=== PATIENT | female | born 1960 | race Caucasian/White ===

== ENCOUNTER 2018-07-19 11:14 | Outpatient (CLI) | payer OTHER ==
--- NOTE | 2018-07-20 09:17 | Mammography Report ---
Reason: SCREENING MAMMO Procedure Date: 07/19/2018 Accession Number: [id number] / [id number] Procedure: ANNY - Screening Mammo w/Chang CPT Code: FULL RESULT: EXAM: Screening Mammo w/Chang DATE: 07/19/2018 11:45 AM CLINICAL HISTORY: Screening exam. History of late childbearing and family history of breast cancer in a cousin at the age of 35 and a aunt at the age of 80. TECHNIQUE: Bilateral CC and MLO views were obtained. COMPARISON: 03/29/2017 through 11/26/2013. FINDINGS: The breasts demonstrate diffuse fatty replacement bilaterally. There are stable typically benign left breast intramammary lymph nodes. No suspicious masses, clustered microcalcifications, or regions of architectural distortion are identified. IMPRESSION: Benign findings RECOMMENDATION: Routine annual screening unless otherwise clinically indicated. BIRADS CATEGORY 2: Benign findings STANDARD QUALIFYING STATEMENTS: 1. This examination was not reviewed with the aid of Computer-Aided Detection (CAD). 2. A negative or benign imaging report should not preclude biopsy if clinically suspicious findings are present. 3. Dense breasts may obscure an underlying neoplasm. 4. This examination was reviewed with the aid of 3D breast imaging (tomosynthesis).
== END 2018-07-19 11:15 | disposition home or self-care (01) ==
LOC: DI 11:14
PROVIDERS: ATTEND Family Medicine
DX: Z12.31 Encounter for screening mammogram for malignant neoplasm of breast (principal); Z80.3 Family history of malignant neoplasm of breast
CPT/HCPCS: 77063; 77067

== ENCOUNTER 2019-08-24 15:00 | Outpatient (CLI) | payer BC ==
--- NOTE | 2019-08-27 14:31 | Mammography Report ---
Reason: ROUTINE MAMMO Procedure Date: 08/24/2019 Accession Number: [id number] / [id number] Procedure: ANNY - Screening Mammo w/Chang CPT Code: Final Report FULL RESULT: EXAM: Screening Mammo w/Chang DATE: 08/24/2019 3:51 PM CLINICAL HISTORY: Screening encounter. History of late childbearing. TECHNIQUE: (B) - Bilateral CC and MLO views were obtained. COMPARISON: 07/19/2018 through 10/04/2012. PARENCHYMAL PATTERN: (A) - The breast(s) demonstrate(s) scattered fibroglandular densities. FINDINGS: There are no suspicious masses, calcifications, or areas of distortion. IMPRESSION: Negative examination. BI-RADS category 1. RECOMMENDATION: (ANNUAL) - Recommend routine annual screening mammography. BI-RADS CATEGORY: (1) - Negative. STANDARD QUALIFYING STATEMENTS: 1. This examination was not reviewed with the aid of Computer-Aided Detection (CAD). 2. A negative or benign imaging report should not preclude biopsy if clinically suspicious findings are present. 3. Dense breasts may obscure an underlying neoplasm. 4. This examination was reviewed with the aid of 3D breast imaging (tomosynthesis).
== END 2019-08-24 15:01 | disposition home or self-care (01) ==
LOC: DI 15:00
DX: Z12.31 Encounter for screening mammogram for malignant neoplasm of breast (principal)
CPT/HCPCS: 77063; 77067

== ENCOUNTER 2020-09-13 14:30 | Outpatient (CLI) | payer BC ==
--- NOTE | 2020-09-13 16:46 | Ultrasound Report ---
PROCEDURE: Pelvic w/Transvaginal INDICATIONS: IRREGULAR MENSES, HX OF GASTRIC BYPASS TECHNIQUE: Real-time scanning was performed of the pelvic organs, with image documentation. Additional endovagi nal scanning was necessary due to incomplete visualization of the adnexal and endometrial structures by transabdominal scanning. COMPARISON: None. FINDINGS: No pathologic free abdominal or pelvic fluid. Uterus: Uterus is normal in size at 8.1 x 4.7 x 5.8 cm. There is a submucosal mid uterus fibroid see n posteriorly that measures 1.9 x 1.9 x 1.5 cm. The endometrium measures 11 mm in combined thickness. The endometrial stripe demonstrates an irregular appearance, with a potential polyp, with a feeding v essel. A cyst is seen along the endometrial stripe that measures up to 5 mm. Nabothian cysts are inci dentally noted. Ovaries: The right ovary measures 1.7 x 1.1 x 1.6 cm and the left ovary measures 0.7 x 1.9 x 1.3 cm. No significant ovarian abnormalities are seen. There are less than 12 follicles seen on each side. No adnexal masses are seen. IMPRESSION: The endometrial stripe is abnormally thickened in this patient with a presenting history of postmenop ausal bleeding. The individual stripe is irregular and there is an apparent endometrial polyp polyp s een. Differential diagnosis includes endometrial hyperplasia and endometrial carcinoma. Please consider correlation with endometrial histology, as clinically appropriate. L1 0.9 cm submucosal fibroid is also seen. Reviewed by: Luis Junior MD on 09/13/2020 3:45 PM [facility] Approved by: Luis Junior MD on 09/13/2020 3:45 PM [facility] Station ID: [id number]
== END 2020-09-13 14:31 | disposition home or self-care (01) ==
LOC: DI 14:30
PROVIDERS: ATTEND Obstetrics & Gynecology
DX: N92.6 Irregular menstruation, unspecified (principal); N84.0 Polyp of corpus uteri; D25.0 Submucous leiomyoma of uterus; Z98.84 Bariatric surgery status

== ENCOUNTER 2020-09-29 14:48 | Outpatient (CLI) | payer BC ==
--- NOTE | 2020-09-30 12:47 | Mammography Report ---
BILATERAL DIGITAL SCREENING MAMMOGRAM 3D/2D: 09/29/2020 CLINICAL: Routine screening. Comparison is made to exams dated: 08/24/2019 mammogram, 07/19/2018 mammogram - [facility], 03/29/2017 mammogram, 01/06/2016 mammogram, 11/26/2013 mammogram, and 12/24/2014 mammogram - [facility]. The tissue of both breasts is predominantly fatty. No significant masses, calcifications, or other findings are seen in either breast. There has been no significant interval change. IMPRESSION: NEGATIVE There is no mammographic evidence of malignancy. A 1 year screening mammogram is recommended. This exam was interpreted at Station ID: [id number]. NOTE: For mammograms, a report in lay terms will be sent to the patient. Approximately 15% of breast malignancies will not be visualized mammographically. In the management of a palpable breast mass, a negative mammogram must not discourage biopsy of a clinically suspicious lesion. Electronically Signed By: Klever Ndiaye M.D., jr/yovany:09/29/2020 15:24:04 ACR BI-RADS Category 1: Negative 3341F PARENCHYMAL PATTERN: (F) - The breast(s) demonstrate(s) diffuse fatty replacement. BI-RADS CATEGORY: (1) - 1 RECOMMENDATION: (ANNUAL) - Recommend routine annual screening mammography. [id number] 1 year screening LATERALITY: (B)
== END 2020-09-29 14:49 | disposition home or self-care (01) ==
LOC: DI.S 14:48
PROVIDERS: ATTEND Obstetrics & Gynecology
DX: Z12.31 Encounter for screening mammogram for malignant neoplasm of breast (principal)

== ENCOUNTER 2020-10-23 07:00 | Outpatient (CLI) | payer BC ==
[2020-10-24 20:48] LABS: BACTERIAL VAGINOSIS DNA NEGATIVE (NEGATIVE); CANDIDA GLABRATA DNA NEGATIVE (NEGATIVE); CANDIDA GROUP DNA NEGATIVE (NEGATIVE); CANDIDA KRUSEI DNA NEGATIVE (NEGATIVE); TRICHOMONAS VAGINALIS DNA NEGATIVE (NEGATIVE)
== END 2020-10-23 23:59 | disposition home or self-care (01) ==
LOC: LAB.R 07:00
PROVIDERS: ATTEND Obstetrics & Gynecology
DX: N89.8 Other specified noninflammatory disorders of vagina (principal)
CPT/HCPCS: 87661; 87801

== ENCOUNTER 2020-12-05 07:36 | Outpatient (CLI) | payer BC ==
[2020-12-05 08:02] LABS: CALCIUM, IONIZED 1.15 mmol/L (1.15-1.33); VBG PH 7.354 (7.31-7.41)
[2020-12-05 08:03] LABS: HCT - HEMATOCRIT 44.9 % (37.0-47.0); HGB - HEMOGLOBIN 14.8 g/dL (12.0-16.0); MEAN CORPUSCULAR HEMOGLOBIN 35.1 pg (27.0-31.0); MEAN CORPUSCULAR VOLUME 106.4 fL (81.0-99.0); MEAN PLATELET VOLUME 8.9 fL (7.9-10.8); RED BLOOD COUNT 4.22 10^6/uL (4.20-5.40); WHITE BLOOD COUNT 3.2 x10^3/uL (4.8-10.8)
[2020-12-05 08:09] LABS: GTT GLUCOSE,FASTING 107 mg/dL (70-100)
[2020-12-05 08:19] LABS: % IRON SATURATION 22 % (20-50); ALBUMIN/GLOBULIN RATIO 1.3 (1.0-2.2); ALKALINE PHOSPHATASE 66 IU/L (42-121); ALT ALANINE AMINOTRANSFERASE 15 IU/L (10-60); AST ASPARTATE AMINOTRANSFERASE 20 IU/L (10-42); BILIRUBIN,TOTAL 0.8 mg/dL (0.2-1.0); BUN - BLOOD UREA NITROGEN 19 mg/dL (6-20); CALCIUM 9.1 mg/dL (8.5-10.3); CARBON DIOXIDE - CO2 27 mmol/L (21-32); CHLORIDE 103 mmol/L (101-111); CREATININE 0.8 mg/dL (0.4-1.0); GFR - MDRD 73 (>89); GLUCOSE 106 mg/dL (70-100); IRON 93 ug/dL (28-170); POTASSIUM 3.9 mmol/L (3.5-5.0); SODIUM 140 mmol/L (135-145); TOTAL IRON BINDING CAPACITY 414 ug/dL (250-450); TOTAL PROTEIN 7.2 g/dL (6.7-8.2); TRANSFERRIN 296 mg/dL (192-382); TRIGLYCERIDES 73 mg/dL
[2020-12-05 08:20] LABS: CHOL/HDL RATIO 2.3 (<4.4); CHOLESTEROL 245 mg/dL; HDL CHOLESTEROL 106 mg/dL; LDL CHOLESTEROL,CALCULATED 124 mg/dL; LDL/HDL RATIO 1.2 (<4.4); VLDL CHOLESTEROL 15 mg/dL
[2020-12-05 08:31] LABS: THYROID STIMULATING HORMONE 6.03 uIU/mL (0.34-5.60)
[2020-12-05 08:37] LABS: FERRITIN 60.4 ng/mL (11.0-306.8)
[2020-12-05 11:20] LABS: FREE T4 (FREE THYROXINE) 0.96 ng/dL (0.58-1.64)
== END 2020-12-05 07:37 | disposition home or self-care (01) ==
LOC: LAB 07:36
PROVIDERS: ATTEND Obstetrics & Gynecology
DX: Z00.00 Encounter for general adult medical examination without abnormal findings (principal); Z98.84 Bariatric surgery status; Z13.220 Encounter for screening for lipoid disorders; D64.9 Anemia, unspecified; Z13.1 Encounter for screening for diabetes mellitus; E06.3 Autoimmune thyroiditis
CPT/HCPCS: 36415; 80053; 80061; 82306; 82330; 82728; 82951; 83540; 83721; 84439; 84443; 84466; 85027

== ENCOUNTER 2020-12-13 11:13 | Outpatient (CLI) | payer BC ==
--- NOTE | 2020-12-13 13:03 | Ultrasound Report ---
PROCEDURE: Pelvic w/Transvaginal INDICATIONS: THICKENED ENDOMETRIUM, UTERINE POLYP TECHNIQUE: Real-time scanning was performed of the pelvic organs, with image documentation. Additional endovagi nal scanning was necessary due to incomplete visualization of the adnexal and endometrial structures by transabdominal scanning. COMPARISON: None. FINDINGS: No pathologic free abdominal or pelvic fluid. Uterus: Uterus is normal in size at 8.1 x 5.3 x 6.0 cm. The previously noted submucosal fibroid is not well evaluated on this examination. The questionable polyp within the lower uterine segment noted on comparison exam is not well evaluated on today's exam. Prominent vessel is however again identifi ed. The endometrium measures 5 mm in combined thickness. Stable endometrial cyst measuring 2 mm in d iameter. Ovaries: The right ovary measures 0.9 x 1.2 x 0.8 cm. In the left ovary measures 1.2 x 1.2 x 1.0 cm. No suspicious cystic or solid mass. IMPRESSION: Endometrial thickness measures approximately 5 mm on today's examination with unchanged 2 mm endometr ial cyst. This is decreased in prominence from recent comparison. This is still slightly enlarged in a postmenopausal patient with bleeding. Consider correlation with endometrial histology as clinically appropriate. The previously noted submucosal fibroid and polyp are not well identified on today's examination. The re is however continued visualization of a dominant vessel which may represent a feeding vessel for a polyp. Consider direct evaluation versus sonohysterogram. Reviewed by: Endy Cardona DO on 12/13/2020 12:02 PM [facility] Approved by: Endy Cardona DO on 12/13/2020 12:02 PM [facility] Station ID: [id number]
== END 2020-12-13 11:14 | disposition home or self-care (01) ==
LOC: DI 11:13
PROVIDERS: ATTEND Obstetrics & Gynecology
DX: N85.00 Endometrial hyperplasia, unspecified (principal); N85.8 Other specified noninflammatory disorders of uterus; R93.89 Abnormal findings on diagnostic imaging of other specified body structures

== ENCOUNTER 2021-02-04 15:49 | Outpatient (CLI) | payer BC ==
[2021-02-04 20:35] LABS: T4 (THYROXINE) 8.05 ug/dL (6.09-12.23)
[2021-02-04 20:37] LABS: THYROID STIMULATING HORMONE 3.25 uIU/mL (0.34-5.60)
[2021-02-04 20:48] LABS: FOLATE 4.72 ng/mL (5.90 - >24.8)
== END 2021-02-04 15:50 | disposition home or self-care (01) ==
LOC: LAB.S 15:49
PROVIDERS: ATTEND Obstetrics & Gynecology
DX: E55.9 Vitamin D deficiency, unspecified (principal); D75.89 Other specified diseases of blood and blood-forming organs; E06.3 Autoimmune thyroiditis
CPT/HCPCS: 36415; 82306; 82607; 82746; 82747; 84436; 84443; 84480

== ENCOUNTER 2021-07-06 10:46 | Outpatient (CLI) | payer BC ==
--- NOTE | 2021-07-07 14:08 | Ultrasound Report ---
LIMITED ULTRASOUND OF LEFT BREAST: 07/06/2021 CLINICAL: Palpable left breast lump. Comparison is made to exams dated: 07/06/2021 mammogram, 09/29/2020 mammogram, 08/24/2019 mammogram, 1 09/19/2017 mammogram - [facility], 03/29/2017 mammogram, and 01/06/2016 mammogram - [facility]. Color flow ultrasound of the left breast 11-12 o'clock region was performed. Enamorado scale images of t he real-time examination were reviewed. There is a 0.4 cm x 0.3 cm x 0.4 cm oval mass with a circumscribed margin in the left breast at 11 o' clock middle depth 5 cm from the nipple. This oval mass is hypoechoic with an abrupt boundary and no posterior acoustic shadowing or enhancement. Color flow imaging demonstrates that there is no vascu larity present. IMPRESSION: PROBABLY BENIGN The 0.4 cm x 0.3 cm x 0.4 cm oval mass in the left breast most likely is complicated cysts and is pro bably benign. Follow-up mammogram and ultrasound in 6 months is recommended. This exam was interpreted at Station ID: [id number]. Electronically Signed By: Klever Ndiaye M.D. jr/:07/06/2021 11:54:07 Ultrasound BI-RADS: 3 Probably benign BI-RADS CATEGORY: (3) - 3 Mammo and US [id number] 6 month follow-up LATERALITY: (B)
--- NOTE | 2021-07-07 14:08 | Mammography Report ---
BILATERAL DIGITAL DIAGNOSTIC MAMMOGRAM 3D/2D: 07/06/2021 CLINICAL: Palpable left breast lump. Comparison is made to exams dated: 09/29/2020 mammogram, 08/24/2019 mammogram, 07/19/2018 mammogram - [facility], 03/29/2017 mammogram, 01/06/2016 mammogram, and 12/24/2014 mammogram - [facility]. The tissue of both breasts is predominantly fatty. No significant masses, calcifications, or other findings are seen in either breast. No mass or other abnormality at the anterior left breast region of reportedly palpable concern. IMPRESSION: INCOMPLETE: NEEDS ADDITIONAL IMAGING EVALUATION No suspicious mammographic finding. An ultrasound will be performed. This exam was interpreted at Station ID: [id number]. NOTE: For mammograms, a report in lay terms will be sent to the patient. Approximately 15% of breast malignancies will not be visualized mammographically. In the management of a palpable breast mass, a negative mammogram must not discourage biopsy of a clinically suspicious lesion. Electronically Signed By: Klever Ndiaye M.D. jr/:07/06/2021 11:34:20 ACR BI-RADS Category 0: Incomplete 3340F PARENCHYMAL PATTERN: (F) - The breast(s) demonstrate(s) diffuse fatty replacement. BI-RADS CATEGORY: (0) - 0 Ultrasound [id number] Immediate follow-up LATERALITY: (B)
== END 2021-07-06 10:47 | disposition home or self-care (01) ==
LOC: DI 10:46
PROVIDERS: ATTEND Obstetrics & Gynecology
DX: N63.22 Unspecified lump in the left breast, upper inner quadrant (principal)

== ENCOUNTER 2022-05-03 08:43 | Outpatient (CLI) | payer BC ==
[2022-05-03 08:55] LABS: BASOPHILS % (AUTO) 0.5 %; EOSINOPHILS # (AUTO) 0.1 10^3/uL (0.0-0.7); EOSINOPHILS % (AUTO) 3.3 %; HCT - HEMATOCRIT 42.2 % (37.0-47.0); LYMPHOCYTES % (AUTO) 22.6 %; MEAN CORPUSCULAR HEMOGLOBIN 34.6 pg (27.0-31.0); MEAN CORPUSCULAR HGB CONC 33.2 g/dL (32.0-36.0); MEAN CORPUSCULAR VOLUME 104.2 fL (81.0-99.0); MEAN PLATELET VOLUME 8.8 fL (7.9-10.8); MONOCYTES # (AUTO) 0.4 10^3/uL (0.0-1.0); MONOCYTES % (AUTO) 8.7 %; NEUTROPHILS # (AUTO) 2.7 10^3/uL (1.5-6.6); NEUTROPHILS % (AUTO) 64.7 %; PLT - PLATELET COUNT 237 10^3/uL (130-450); RED BLOOD COUNT 4.05 10^6/uL (4.20-5.40); RED CELL DISTRIBUTION WIDTH 12.5 % (12.0-15.0); WHITE BLOOD COUNT 4.2 x10^3/uL (4.8-10.8)
[2022-05-03 09:18] LABS: % IRON SATURATION 29 % (20-50); ALBUMIN 3.9 g/dL (3.2-5.5); ALBUMIN/GLOBULIN RATIO 1.2 (1.0-2.2); ALKALINE PHOSPHATASE 69 IU/L (42-121); ALT ALANINE AMINOTRANSFERASE 15 IU/L (10-60); AST ASPARTATE AMINOTRANSFERASE 22 IU/L (10-42); BILIRUBIN,TOTAL 0.7 mg/dL (0.2-1.0); BUN - BLOOD UREA NITROGEN 17 mg/dL (6-20); CALCIUM 9.3 mg/dL (8.5-10.3); CARBON DIOXIDE - CO2 29 mmol/L (21-32); CHLORIDE 105 mmol/L (101-111); CHOL/HDL RATIO 2.5 (<4.4); CHOLESTEROL 226 mg/dL; CREATININE 0.9 mg/dL (0.4-1.0); GFR - MDRD 63 (>89); GLUCOSE 106 mg/dL (70-100); HDL CHOLESTEROL 92 mg/dL; IRON 114 ug/dL (28-170); LDL CHOLESTEROL,CALCULATED 118 mg/dL; LDL/HDL RATIO 1.3 (<4.4); POTASSIUM 4.1 mmol/L (3.5-5.0); SODIUM 141 mmol/L (135-145); TOTAL IRON BINDING CAPACITY 396 ug/dL (250-450); TOTAL PROTEIN 7.2 g/dL (6.7-8.2); TRANSFERRIN 283 mg/dL (192-382); TRIGLYCERIDES 80 mg/dL; VLDL CHOLESTEROL 16 mg/dL
[2022-05-03 09:30] LABS: THYROID STIMULATING HORMONE 4.97 uIU/mL (0.34-5.60)
[2022-05-03 09:38] LABS: FERRITIN 66.9 ng/mL (11.0-306.8)
[2022-05-03 09:41] LABS: FOLATE 11.87 ng/mL (5.90 - >24.8)
[2022-05-03 12:53] LABS: ESTIMATED AVERAGE GLUCOSE 94 mg/dL (70-100); HEMOGLOBIN A1c% 4.9 % (4.27-6.07)
== END 2022-05-03 08:44 | disposition home or self-care (01) ==
LOC: LAB 08:43
PROVIDERS: ATTEND Internal Medicine
DX: E06.3 Autoimmune thyroiditis (principal); K90.9 Intestinal malabsorption, unspecified; E66.9 Obesity, unspecified; R73.01 Impaired fasting glucose
CPT/HCPCS: 36415; 80053; 80061; 82306; 82607; 82728; 82746; 83036; 83540; 83721; 84443; 84466; 85025

== ENCOUNTER 2023-10-06 14:10 | Outpatient (CLI) | payer MEDICARE, OTHER ==
--- NOTE | 2023-10-06 15:48 | DEXA Report ---
PROCEDURE: Dexa Spine and/or Hip INDICATIONS: POST MENOPAUSAL TECHNIQUE: Dual energy x-ray absorptiometry (DXA) was performed on a Class Messenger System. Regions measur ed are the AP Spine, femoral neck, and if needed forearm. COMPARISON: None FINDINGS: Lumbar Spine: Bone Mineral Density: 1.066 g/cm/cm,T score: -1.0. Left Femoral Neck: Bone Mineral Density: 0.793 g/cm/cm, T score: -1.8. Left Hip: Bone Mineral Density: 0.841 g/cm/cm,T score: -1.3. (T score greater or equal to -1.0: NORMAL) (T score from -1.1 to -2.4: OSTEOPENIA) (T score less than or equal to -2.5 to: OSTEOPOROSIS) Impression: By WHO criteria, this patient has low bone density (osteopenia). Patients with diagnosis of osteoporosis or osteopenia should have regular bone mineral density assess ment. For those eligible for Medicare, routine testing is allowed once every 2 years. Testing frequ ency can be increased for patients who have rapidly progressing disease or for those who are receivin g medical therapy to restore bone mass. Reviewed by: Isabelle Thrasher MD on 10/06/2023 3:47 PM PST Approved by: Isabelle Thrasher MD on 10/06/2023 3:47 PM PST Station ID: [id number]
== END 2023-10-06 14:11 | disposition home or self-care (01) ==
LOC: DI 14:10
PROVIDERS: ATTEND Internal Medicine
DX: Z78.0 Asymptomatic menopausal state (principal); M85.89 Other specified disorders of bone density and structure, multiple sites

== ENCOUNTER 2023-12-19 14:45 | Outpatient (CLI) | payer MEDICARE, OTHER ==
[2023-12-19 22:08] VITALS: BP 142/93; O2SAT 99
--- NOTE | 2023-12-19 22:08 | SLEEP CARE CONSULTATION ---
Information from patient questionnaire entered by Valentino Best. I have reviewed and concur with the information entered by Valetnino Best. This document represents the service I personally performed and the decisions made by me, Joie Bonilla MD, [facility]. History of Present Illness Service Date and Time: 12/19/2023 1445 Reason for Visit: New patient Chief Complaint: reports: Insomnia, Unrefreshed sleep, Observed pauses in breathing, Fatigue, Frequent awakenings at night Date of Onset: ABOUT 5 YRS Usual bedtime: 2200 Time it takes to fall asleep: 10-15MIN Snores at night: Yes Observed to quit breathing while asleep: No Sleeps alone due to snoring: Yes Number of times waking at night: 1-4 Reasons for waking at night: reports: Gasping for air, Bathroom, Other (UNKNOWN NOISE) Toss, Turn, or Twitch while sleeping: Yes Recalls having dreams: Yes Usually gets out of bed at: 0900 Feels refreshed in the morning: No Morning headache: No Sleepy or fatigued during the day: Yes Ever fallen asleep while driving: No Takes day naps: No Dreams during day naps: Yes Prior sleep studies: No Additional HPI information: I have the pleasure of seeing Ms. Hyde today regarding the possibility of her having obstructive sleep apnea. As you know, she is a 63-year-old lady who complains of insomnia and loud snore. The patient tells me that she normally goes to bed around 10 pm, and it takes her approximately 10 - 15 minutes to fall asleep. She has been told that she snores loudly and irregularly at night. She has never been observed to stop breathing in her sleep. Her has to sleep in a separate room but it is because of his snores. She can recall waking up on the average of 1 - 4 times during the night. Most of the time she wakes up because of having to use the bathroom and noises. She has awakened occasionally because of her own snoring, choking, and having to gasp for air. There is not a lot of tossing and turning in her sleep. She has somniloquy (sleep talking) but not somnambulism (sleep walking). Generally, she can recall having dreams. In the morning she usually gets up out of the bed around 9 a.m. not feeling refreshed nor rested. She usually does not have a morning headache. During the day she complains of feeling fatigued. Her score on [place] Sleepiness Scale is 4 out of 24. She never has fallen asleep while driving nor has had any accident due to sleepiness. She usually does not take naps during the day. She denies having impaired concentration during the day. 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 Patient is and lives in [place]. Have you smoked in the past 12 months: No Cigarettes per day (20/pack): 10 Years of smokin Quit date: 1983 Smoking Pack Years: 5.0 Alcohol use: Yes Alcohol amount and frequency: 2-3 DRINKS SOMETIMES DAILY SOMETIMES NOT FOR MONTHS Caffeine use: No Family History Family history of sleep disordered breathing: Yes Family Hx Sleep Apnea: Sibling: Snoring, Grandparent: Snoring Allergies and Home Medications Known drug allergies: Yes ( LISTED) Drug allergies reviewed: Yes Home medication list reviewed: Yes Allergy and home medication list: Allergies erythromycin base Allergy (Verified 12/15/23 12:56) Review of Systems Weight gain over past 5 years: 15 Weight loss over past 5 years: 15 Cardiovascular: reports: palpitations, irregular heart rate or pulse Respiratory: denies: shortness of breath, wheeze, sputum production, chronic cough, other Gastrointestinal: denies: heartburn, difficulty swallowing, nausea, vomitting, diarrhea, abdominal pain, other Urinary: denies: incontinence, frequency, urgency, impotence, other Neurological: denies: headaches, seizure, head trauma, disorientation, speech dysfunction, gait or balance problems, fainting or unconsciousness, other Psychiatric: denies: Attention Deficit Hyperactivity, anxiety, depression, mood disorder, claustrophobia, other Ear/Nose/Throat: denies: nasal congestion, sinus problems, nose bleeds, dry mo uth/throat, hoarseness, injury to nose, tonsillectomy, wisdom teeth removed, other Endocrine: reports: thyroid disease Musculoskeletal: reports: joint pain Immunologic: denies: sneezing, rash, itching, allergies to food or environment, other Physical Exam Vital signs obtained and entered by: VALENTINO Yadav MA Blood Pressure: 142/93 (LEFT ARM) Cuff size: long Heart Rate: 57 O2 Saturation: 99 Height: 5 ft 7.5 in Weight: 310 lb Body Mass Index: 47.8 BMI Classification: Morbidly Obese Neck circumference: 14.5 Mood/affect: normal HEENT: No craniofacial malformation Nostrils: patent to airflow Turbinates: normal Septum: midline Mouth and throat: narrow oropharynx Soft palate: long Hard palate: normal Uvula: normal Uvula visualization: 50% Mallampati Class II Tongue: normal in size Tonsils: small Chin and jaw: normal size and position Neck: normal w/o lymphadenopathy or thyromegaly Heart: regular rate and rhythm Lungs: clear bilaterally Extremities: no edema or clubbing Neurologic: intact Impression and Plan IMPRESSION: 1. Obstructive Sleep Apnea-Hypopnea Syndrome, as evident by history of loud and irregular snoring, frequent awakenings during the night, unrefreshed sleep, and persistent fatigue. Narrow oropharynx and obesity are common predisposing factors for obstructive sleep apnea-hypopnea syndrome. I recommend proceeding to polysomnography to confirm the diagnosis and to assess severity. If she has significant sleep disordered breathing, a manual CPAP titration study will also be performed to find the optimal treatment pressure. I informed the patient of what the sleep studies involve and after some discussion, she agreed to proceed. 2. Insomnia due to excessive time spent in bed of about 11 hours a night. The patient was advised to spend no more than 8 hours in bed. Plan: 1. Schedule an in-laboratory polysomnography. 2. Avoid alcohol, sedatives, and muscle relaxants around bedtime. 3. Maintain a regular wake up time and spend no more than 8 hours in bed at night. Avoid naps. 4. Return for follow up after the sleep study. Counseling Topics: Weight control Follow up with Sleep Care in: 1-2 months Visit Type: In Office Time Spent with Patient (minutes): 15 Provider Statement: I spent 100% of the Face to Face Visit with the patient with greater than 50% spent counseling the patient and coordination of care.
== END 2023-12-19 14:46 | disposition home or self-care (01) ==
LOC: SC 14:45
PROVIDERS: ATTEND Internal Medicine Pulmonary Disease
DX: G47.8 Other sleep disorders (principal); R06.83 Snoring; R53.83 Other fatigue; G47.00 Insomnia, unspecified; E66.01 Morbid (severe) obesity due to excess calories; Z68.42 Body mass index [BMI] 45.0-49.9, adult; Z87.891 Personal history of nicotine dependence
CPT/HCPCS: 99202; G0463; 99212

== ENCOUNTER 2024-01-09 20:20 | Outpatient (CLI) | payer MEDICARE, OTHER | END 2024-01-09 20:21 | disposition home or self-care (01) | LOC: SC 20:20 | PROVIDERS: ATTEND Internal Medicine Pulmonary Disease | DX: G47.00 Insomnia, unspecified (principal); R53.83 Other fatigue; G47.50 Parasomnia, unspecified; G47.8 Other sleep disorders; E66.9 Obesity, unspecified; Z68.42 Body mass index [BMI] 45.0-49.9, adult; G47.9 Sleep disorder, unspecified; I49.1 Atrial premature depolarization | CPT/HCPCS: 95810 ==

== ENCOUNTER 2024-02-01 14:22 | Outpatient (CLI) | payer MEDICARE, OTHER ==
--- NOTE | 2024-02-01 15:18 | SLEEP CARE CONSULTATION ---
Information from patient questionnaire entered by Ivanna Best. I have reviewed and concur with the information entered by Ivanna Best. This document represents the service I personally performed and the decisions made by , Ruby Ogden ARNP. History of Present Illness Service Date and Time: 02/01/20241421 Initial [place] Sleepiness Scale score: 4 Current [place] Sleepiness Scale score: 4 (02/01/24) Additional HPI information: PHILLIP RODRIGUEZ returns for follow up and results of the recently performed polysomnography. The patient was informed of the following findings: No significant sleep disordered breathing with an average AHI of 2.7 and tee oxygen saturation of 85%. She had frequent premature atrial contractions and somniloquy. I explained the pathophysiology behind obstructive sleep apnea. Patient does not have sleep apnea and was advised how weight gain could increase the risk of developing sleep apnea in the future. I strongly encouraged the patient to lose weight. Patient counseled not drink alcohol less than 4 hours before bedtime as it can increase snoring and apnea. Patient was cautioned about risks of drowsy driving until sleepiness symptoms resolve. Patient denies drowsy driving. Sleep Study - Results Type of Sleep Study: Polysomnography (COMPLETED 01/09/24) Polysomnography/Home Sleep Study results: IMPRESSION: The quality of the study is good. The patient had reduced sleep efficiency due to sleep onset insomnia. The sleep architecture was abnormal for sleep fragmentation and reduced amount of time spent in REM sleep. Respiratory monitoring showed no significant sleep disordered breathing (AHI = 2.7) associated with frequent arousals, oxyhemoglobin desaturation and mild hypoxia (tee oxygen saturation of 85% and only 2% to the total sleep time was spent with oxygen saturation below 90%). The respiratory events occurred mainly during __ (supine AHI = 0.0; non-supine = 4.55). Snore was light in intensity. There was no significant periodic leg movement of sleep. Cardiac rhythm was sinus rhythm with frequent premature atrial contractions, occasionally in trigeminy. There was somniloquy (sleep) during REM sleep Allergies and Home Medications Known drug allergies: Yes (as listed) Drug allergies reviewed: Yes Home medication list reviewed: Yes (no changes) Allergy and home medication list: Allergies erythromycin base Allergy (Verified 01/30/24 11:32) Review of Systems Review of systems same as previous: Yes (NO CHANGE) Physical Exam Vital signs obtained and entered by: IVANNA Yadav MA Blood Pressure: 138/78 (LEFT ARM) Cuff size: long Heart Rate: 66 O2 Saturation: 98 Height: 5 ft 9 in Weight: 310 lb Body Mass Index: 45.8 BMI Classification: Morbidly Obese Impression and Plan 1. Somniloquy. Patient was noted to talk during night of the study. There is no treatment necessary for this parasomnia. 2. Premature atrial contractions, frequent. She was advised that she should follow up with primary provider for further workup and treatment as appropriate. She voiced understanding. 3. Obesity, unspecified. Currently patients BMI is 45.8. Obesity increases the risk of apnea, CPAP pressure requirements and overall health risks especially cardiovascular and diabetes. Thus patient is advised to lose weight. * Follow up with primary provider for PACs * Attempt to lose weight * Avoid alcohol consumption near bedtime * Return as needed for follow up. Counseling Topics: Weight loss health impact Follow up with Sleep Care in: as needed Follow up with: PCP (for PACs) Visit Type: In Office Time Spent with Patient (minutes): 11 Provider Statement: I spent 100% of the Face to Face Visit with the patient with greater than 50% spent counseling the patient and coordination of care.
[2024-02-01 15:26] VITALS: BP 138/78; O2SAT 98
== END 2024-02-01 14:23 | disposition home or self-care (01) ==
LOC: SC 14:22
PROVIDERS: ATTEND Nurse Practitioner Family
DX: G47.50 Parasomnia, unspecified (principal); I49.1 Atrial premature depolarization; E66.01 Morbid (severe) obesity due to excess calories; Z68.42 Body mass index [BMI] 45.0-49.9, adult
CPT/HCPCS: 99212; G0463

== ENCOUNTER 2024-02-09 17:11 | Outpatient (CLI) | payer MEDICARE, OTHER ==
--- NOTE | 2024-02-10 11:39 | XRAY Report ---
PROCEDURE: Foot 3+V LT INDICATIONS: L FOOT PAIN TECHNIQUE: 3 views of the foot were acquired. COMPARISON: None. FINDINGS: Bones: No fractures or dislocations. No suspicious bony lesions. Mild degenerative changes. Small p lantar calcaneal spur. Soft tissues: No tibiotalar joint effusion. Achilles tendon appears normal. IMPRESSION: Mild degenerative changes. Small plantar calcaneal spur. Reviewed by: Tello Rodriguez MD on 02/10/2024 11:38 AM PDT Approved by: Tello Rodriguez MD on 02/10/2024 11:38 AM PDT Station ID: [id number]
== END 2024-02-09 17:12 | disposition home or self-care (01) ==
LOC: DI 17:11
PROVIDERS: ATTEND Internal Medicine
DX: M19.072 Primary osteoarthritis, left ankle and foot (principal); M77.32 Calcaneal spur, left foot

== ENCOUNTER 2024-04-25 09:12 | Outpatient (CLI) | payer MEDICARE, OTHER ==
[2024-04-25 09:25] LABS: BASOPHILS % (AUTO) 0.9 %; EOSINOPHILS # (AUTO) 0.1 10^3/uL (0.0-0.7); EOSINOPHILS % (AUTO) 3.7 %; HCT - HEMATOCRIT 42.1 % (37.0-47.0); HGB - HEMOGLOBIN 13.7 g/dL (12.0-16.0); LYMPHOCYTES % (AUTO) 31.5 %; MEAN CORPUSCULAR HEMOGLOBIN 33.7 pg (27.0-31.0); MEAN CORPUSCULAR HGB CONC 32.5 g/dL (32.0-36.0); MEAN CORPUSCULAR VOLUME 103.4 fL (81.0-99.0); MONOCYTES # (AUTO) 0.3 10^3/uL (0.0-1.0); MONOCYTES % (AUTO) 7.7 %; NEUTROPHILS # (AUTO) 1.8 10^3/uL (1.5-6.6); NEUTROPHILS % (AUTO) 55.9 %; PLT - PLATELET COUNT 217 10^3/uL (130-450); RED BLOOD COUNT 4.07 10^6/uL (4.20-5.40); RED CELL DISTRIBUTION WIDTH 13.1 % (12.0-15.0); WHITE BLOOD COUNT 3.2 x10^3/uL (4.8-10.8)
[2024-04-25 09:40] LABS: ALBUMIN/GLOBULIN RATIO 1.6 (1.0-2.2); ALKALINE PHOSPHATASE 67 IU/L (42-121); ALT ALANINE AMINOTRANSFERASE 17 IU/L (10-60); AST ASPARTATE AMINOTRANSFERASE 23 IU/L (10-42); BILIRUBIN,TOTAL 0.8 mg/dL (0.2-1.0); BUN - BLOOD UREA NITROGEN 16 mg/dL (6-20); CALCIUM 9.4 mg/dL (8.5-10.3); CARBON DIOXIDE - CO2 30 mmol/L (21-32); CHLORIDE 105 mmol/L (101-111); CHOL/HDL RATIO 2.3 (<4.4); CHOLESTEROL 223 mg/dL; CREATININE 0.8 mg/dL (0.6-1.3); GFR - MDRD 72 (>89); GLUCOSE 106 mg/dL (74-104); HDL CHOLESTEROL 97 mg/dL; LDL CHOLESTEROL,CALCULATED 108 mg/dL; LDL/HDL RATIO 1.1 (<4.4); POTASSIUM 4.1 mmol/L (3.5-4.5); SODIUM 141 mmol/L (135-145); TOTAL PROTEIN 6.5 g/dL (6.4-8.9); TRIGLYCERIDES 89 mg/dL; VLDL CHOLESTEROL 18 mg/dL
[2024-04-25 09:56] LABS: THYROID STIMULATING HORMONE 3.05 uIU/mL (0.34-5.60)
== END 2024-04-25 09:13 | disposition home or self-care (01) ==
LOC: LAB 09:12
PROVIDERS: ATTEND Nurse Practitioner Family
DX: R73.01 Impaired fasting glucose (principal); E55.9 Vitamin D deficiency, unspecified; E06.3 Autoimmune thyroiditis; D75.89 Other specified diseases of blood and blood-forming organs; D64.9 Anemia, unspecified
CPT/HCPCS: 36415; 80053; 80061; 82306; 83721; 84443; 85025